=== PATIENT | female | born 1990 | race Two or more races ===

== ENCOUNTER 2016-10-07 20:37 | Emergency (ER) | payer MEDICAID ==
[~2016-10-07] VITALS: Ht 154.9 cm; Wt 80.3 kg
[2016-10-07 21:30] VITALS: BP 121/70
[2016-10-07 21:51] LABS: APPEARANCE,URINE CLEAR; KETONES,URINE NEGATIVE (NEGATIVE); LEUKOCYTE ESTERASE ,URINE 1+ (NEGATIVE); NITRITE,URINE NEGATIVE (NEGATIVE); PH,URINE 8 (4.5-8.0); PROTEIN,URINE NEGATIVE (NEGATIVE); UROBILINOGEN,URINE NORMAL MG/DL (0.0-1.0)
[2016-10-07 22:02] LABS: BACTERIA,URINE FEW /HPF; RBC,URINE 0-2 /HPF (0 - 2); SQUAMOUS EPITHELIAL CELL,UR FEW /LPF (NONE/OCC)
--- NOTE | 2016-10-07 22:20 | Emergency Room Report ---
History of Present Illness General Chief Complaint: Vaginal Source: Patient Present Illness HPI Is a 26-year-old female who is 1 para 0, approximately 14 weeks . She already had PHARMACY [employer]UDENT followup and ultrasound done already. She is O+. She presents with chief complaint of vaginal bleeding. When she wiped she noticed some bright red blood. No pain. No trauma. No recent intercourse. Denies any fever chills denies any urinary complaint. She had spotting before but bleeding seemed to be worse. Allergies: Coded Allergies: No Known Allergies (Unverified , 10/07/16) Patient History Past Medical History: see triage record, old chart reviewed Past Surgical History: none Pertinent Family History: none Social History: Denies: smoking Last Menstrual Period: 14 WEEKS , LAST PERIOD AROUND JULY Now: Yes Immunizations: other Reviewed Nursing Documentation: PMH: Agreed, PSxH: Agreed Nursing Documentation-PM Past Medical History: No Stated History Review of Systems Eye: Denies: blurred vision, eye pain ENT: Denies: ear pain, nose congestion, throat swelling Respiratory: Denies: cough, shortness of breath Cardiovascular: Denies: chest pain, palpitations Gastrointestinal: Denies: abdominal pain, diarrhea, nausea, vomiting Musculoskeletal: Denies: back pain, joint pain Skin: Denies: rash Neurological: Denies: headache, numbness Endocrine: Denies: increased thirst, increased urine Hematologic/Lymphatic: Denies: easy bruising All Other Systems: negative except mentioned in HPI Physical Exam Vital Signs Date Time Temp Pulse Resp B/P Pulse Ox O2 Delivery O2 Flow Rate FiO2 10/07/16 20:49 98.1 93 18 115/73 98 Room Air vitals normal Sp02 EP Interpretation: reviewed, normal General Appearance: well appearing, no apparent distress, alert Head: normocephalic, atraumatic Eyes: bilateral eye EOMI, bilateral eye PERRL ENT: hearing grossly normal, normal pharynx Neck: full range of motion, supple, no meningismus Respiratory: chest non-tender, lungs clear, normal breath sounds Cardiovascular #1: regular rate, rhythm, no murmur Gastrointestinal: normal bowel sounds, non tender, no mass, no organomegaly, no bruit, non-distended Musculoskeletal: back normal, gait/station normal, normal range of motion Psychiatric: mood/affect normal Skin: warm/dry Medical Decision Making Diagnostic Impression: Primary Impression: Threatened ER Course Patient presents with vaginal bleeding during . This may be placenta previa. She has no pain. My bedside ultrasound show a live IUP with good movement and heart beat. Urine is unremarkable and unlikely to be infected. We'll wait for culture before treatment. Patient has appointment with her OB in a few days. Last Vital Signs Date Time Temp Pulse Resp B/P Pulse Ox O2 Delivery O2 Flow Rate FiO2 10/07/16 20:49 98.1 93 18 115/73 98 Room Air Status: improved Disposition: HOME, SELF-CARE Condition: Stable Referrals: NON PHYSICIAN (PCP) Additional Instructions: Followup with your doctor as scheduled. Return if symptom worsen. KONSTANTIN ORTEGA M.D. Oct 07, 2016 22:20
[2016-10-07 22:27] VITALS: BP 121/70
== END 2016-10-07 22:27 | disposition home or self-care (01) ==
LOC: EMR 21:51
DX: O20.0 Threatened abortion (principal); Z3A.14 14 weeks gestation of pregnancy
CPT/HCPCS: 81003; 99282